=== PATIENT | female | born 1925 | race Caucasian/White ===

== ENCOUNTER 2017-05-21 16:41 | Inpatient (IN) | payer MEDICARE ==
[~2017-05-21] VITALS: Ht 165.1 cm; Wt 83.3 kg
[2017-05-21 17:20] LABS: BASOPHILS % (AUTO) 0.3 % (0.0-5.0); EOSINOPHILS % (AUTO) 0.5 % (0.0-8.0); HEMATOCRIT 35.1 % (36-48); LYMPHOCYTES % (AUTO) 5.5 % (21.0-51.0); MEAN CORPUSCULAR HEMOGLOBIN 30.3 pg (27.0-33.0); MEAN CORPUSCULAR HGB CONC 34.9 g/dL (32.0-36.0); MONOCYTES % (AUTO) 9.8 % (3.0-13.0); NEUTROPHILS % (AUTO) 83.9 % (40.0-77.0); PLATELET COUNT (AUTO) 308 K/uL (130-400); RED BLOOD CELL COUNT(AUTO) 4.03 MIL/uL (4.00-5.50); RED CELL DISTRIBUTION WIDTH 15.4 % (11.0-15.5); WHITE BLOOD COUNT (AUTO) 13.4 K/uL (4.8-10.8)
[2017-05-21 17:39] LABS: ALBUMIN 3.4 g/dL (3.5-5.0); BILIRUBIN,TOTAL 0.9 mg/dL (0.2-1.0); CREATININE 2.1 mg/dL (0.5-1.5); TOTAL PROTEIN, SERUM 7.5 g/dL (6.0-8.3)
[2017-05-21 17:41] LABS: POTASSIUM 2.6 mmol/L (3.5-5.1)
[2017-05-21] MEDS ORDERED: CEFTRIAXONE SODIUM 1 GM ONE (17:46)
[2017-05-21] MEDS ORDERED: SODIUM CHLORIDE 0.9% 1000ML 1,000 ML IV ONE (17:48)
[2017-05-21] MEDS ORDERED: POTASSIUM BICARB/CIT AC 25 MEQ TABLET.EFF ONE (17:49)
[2017-05-21] MEDS ORDERED: ZOSYN 3.375GM+NS 50ML 50 ML IV ONE (20:54)
[2017-05-21] MEDS ORDERED: ACETAMINOPHEN 325 MG TAB PO PRN ×2 (21:00)
[2017-05-21] MEDS ORDERED: DEXTROSE 50%-WATER 50 ML DISP.SYRIN IV PRN (21:00)
[2017-05-21] MEDS ORDERED: NITROGLYCERIN 0.4 MG SL TAB SL PRN (21:00)
[2017-05-21] MEDS ORDERED: VANCOMYCIN 1GM+NS 250ML 250 ML IV SCH (21:00)
[2017-05-21] MEDS ORDERED: DiphenhydrAMINE HCL 50 MG/ML VIAL IVP PRN (21:00)
[2017-05-21] MEDS ORDERED: MAG HYDROX/AL HYDROX/SIMETH ES 30 ML SUSP UDCUP PO PRN (21:00)
[2017-05-21] MEDS ORDERED: DIPHENHYDRAMINE HCL 25 MG CAPSULE PO PRN (21:00)
[2017-05-21] MEDS ORDERED: ONDANSETRON HCL 4 MG/2 ML VIAL IVP PRN (21:00)
[2017-05-21] MEDS ORDERED: ZOSYN 3.375GM+NS 50ML 50 ML IV SCH (21:00)
[2017-05-21] MEDS ORDERED: ZOLPIDEM TARTRATE 5 MG TAB PO PRN (21:00)
[2017-05-21] MEDS ORDERED: GUAIFENESIN-DM 200/20 MG 10 ML PO PRN (21:00)
[2017-05-21] MEDS ORDERED: GLUCAGON 1MG KIT 1 MG ML IM PRN (21:00)
[2017-05-21] MEDS: SODIUM CHLORIDE 0.9% 1000ML 1,000 ML IV SCH (21:00)
[2017-05-21] MEDS ORDERED: LACTULOSE 20 GM/30 ML UDCUP PO PRN (21:00)
[2017-05-21] MEDS ORDERED: CLONIDINE HCL 0.1 MG TABLET PO PRN (21:00)
[2017-05-21] MEDS ORDERED: VANCOMYCIN PROTOCOL PER PHARMACY IV SCH (21:00)
[2017-05-21] MEDS ORDERED: IPRATROPIUM/ALBUTEROL SULFATE 3 ML SOLUTION IH PRN (21:00)
[2017-05-21] MEDS: INSULIN R PO SSI SQ SCH (21:00)
[2017-05-21] MEDS ORDERED: VANCOMYCIN 1GM+NS 250ML 250 ML IV ONE (21:55)
[2017-05-21] MEDS ORDERED: ACETAMINOPHEN-CODEINE 300/30MG TAB ONE (23:04)
[2017-05-22] MEDS ORDERED: SODIUM CHLORIDE 0.9% 1000ML 1,000 ML IV ONE (00:29)
[2017-05-22] MEDS ORDERED: ZOSYN 3.375GM+NS 50ML 50 ML IV ONE (04:30)
[2017-05-22 07:00] LABS: BASOPHILS % (AUTO) 0.4 % (0.0-5.0); EOSINOPHILS % (AUTO) 1.7 % (0.0-8.0); HEMATOCRIT 31.4 % (36-48); LYMPHOCYTES % (AUTO) 8.5 % (21.0-51.0); MEAN CORPUSCULAR HEMOGLOBIN 30.9 pg (27.0-33.0); MEAN CORPUSCULAR HGB CONC 35.2 g/dL (32.0-36.0); MEAN CORPUSCULAR VOLUME 87.6 fL (79-99); NEUTROPHILS % (AUTO) 76.4 % (40.0-77.0); PLATELET COUNT (AUTO) 253 K/uL (130-400); RED BLOOD CELL COUNT(AUTO) 3.59 MIL/uL (4.00-5.50); RED CELL DISTRIBUTION WIDTH 15.2 % (11.0-15.5); WHITE BLOOD COUNT (AUTO) 8.8 K/uL (4.8-10.8)
[2017-05-22 07:03] LABS: CREATININE 1.8 mg/dL (0.5-1.5)
[2017-05-22 07:09] LABS: POTASSIUM 1.8 mmol/L (3.5-5.1)
[2017-05-22] MEDS: INSULIN R PO SSI SQ SCH ×4 (07:30→21:00)
[2017-05-22] MEDS ORDERED: POTASSIUM CHLORIDE 20 MEQ ERTAB PO ONE (07:39)
[2017-05-22] MEDS ORDERED: POTASSIUM CHLORIDE 20MEQ/100ML 100 ML IV ONE (07:43)
[2017-05-22] MEDS ORDERED: LIDOCAINE HCL-MPF 1% 2ML VIAL ONE (07:47)
[2017-05-22] MEDS ORDERED: MAGNESIUM 2GM PREMIX 50ML 50 ML IV ONE (10:05)
[2017-05-22 11:20] VITALS: BP 90/68
[2017-05-22] MEDS ORDERED: ACETAMINOPHEN-CODEINE 300/30MG TAB PO PRN (11:30)
[2017-05-22] MEDS ORDERED: COMPOUND IV REFRIGERATED 1 EACH IVSOLN MISC PRN (12:30)
[2017-05-22] MEDS: PIPERACILLIN SODIUM/TAZOBACTAM 3.375 GM VIAL IV SCH ×3 (15:13→23:18)
[2017-05-22 16:00] VITALS: BP 114/59
[2017-05-22] MEDS: VANCOMYCIN 1.25 GM in SODIUM CHLORIDE 0.9% 250 ML IV SCH (17:31)
[2017-05-22] MEDS: POTASSIUM CHLORIDE 10% ELIXIR 20 MEQ/15 ML UDCUP PO PRN ×3 (18:42→23:18)
[2017-05-22] MEDS ORDERED: DOCU-116 PO (20:08)
[2017-05-22] MEDS ORDERED: LEVO25TA54 PO (20:08)
[2017-05-22] MEDS ORDERED: LACT10SO PO (20:08)
[2017-05-22] MEDS ORDERED: GABA-531 PO (20:08)
[2017-05-22] MEDS ORDERED: IPRA3AMP4 IH (20:08)
[2017-05-22] MEDS ORDERED: LORA0.5T2 PO (20:08)
[2017-05-22] MEDS ORDERED: FENT-77 TD (20:08)
[2017-05-22] MEDS ORDERED: FURO40TA5 PO (20:08)
[2017-05-22] MEDS ORDERED: TYL3B PO (20:08)
[2017-05-22] MEDS ORDERED: HC1C1.5 TP (20:08)
[2017-05-22] MEDS ORDERED: ASPI-1197 PO (20:08)
[2017-05-22] MEDS ORDERED: PROM25TA7 PO (20:09)
[2017-05-22] MEDS ORDERED: METO5TAB7 PO (20:09)
[2017-05-22] MEDS ORDERED: SENN-175 PO (20:09)
[2017-05-22] MEDS ORDERED: MELA1TAB28 PO (20:09)
[2017-05-22] MEDS ORDERED: FOLI1TAB48 PO (20:09)
[2017-05-22 20:16] VITALS: BP 112/62
[2017-05-22] MEDS: SODIUM CHLORIDE 0.9% 1000ML 1,000 ML IV SCH (21:11)
[2017-05-23] VITALS (7 sets, daily range): BP systolic 99–110; BP diastolic 52–58
[2017-05-23] MEDS: SODIUM CHLORIDE 0.9% 1000ML 1,000 ML IV SCH ×3 (03:20→23:00)
[2017-05-23 05:30] LABS: MAGNESIUM 1.6 mg/dL (1.80-2.40)
[2017-05-23 05:32] LABS: POTASSIUM 2.1 mmol/L (3.5-5.1)
[2017-05-23] MEDS: INSULIN R PO SSI SQ SCH ×3 (06:04→20:46)
[2017-05-23] MEDS ORDERED: PROMETHAZINE HCL 25 MG TABLET PO PRN (06:30)
[2017-05-23] MEDS ORDERED: MAGNESIUM 2GM PREMIX 50ML 50 ML IV SCH (06:45)
[2017-05-23] MEDS ORDERED: HYDROCORTISONE 1% 28.35 GM CREAM TP PRN (06:45)
[2017-05-23] MEDS: PIPERACILLIN SODIUM/TAZOBACTAM 3.375 GM VIAL IV SCH ×3 (06:58→19:34)
[2017-05-23] MEDS: POTASSIUM CHLORIDE 10% ELIXIR 20 MEQ/15 ML UDCUP PO PRN ×2 (06:58→20:48)
[2017-05-23] MEDS ORDERED: LORAZEPAM 2 MG/ML 1 ML VIAL IVP PRN (07:00)
[2017-05-23] MEDS ORDERED: IPRATROPIUM/ALBUTEROL SULFATE 3 ML SOLUTION IH PRN (08:00)
[2017-05-23] MEDS: POTASSIUM CHLORIDE 20MEQ/100ML 100 ML IV PRN ×3 (08:15→20:48)
[2017-05-23] MEDS: POTASSIUM CHLORIDE 20 MEQ ERTAB PO PRN ×2 (08:15→13:42)
[2017-05-23] MEDS: LIDOCAINE HCL-MPF 1% 2ML VIAL IJ PRN ×3 (08:16→20:47)
[2017-05-23] MEDS ORDERED: **HM** MELATONIN 3MG PO PRN (09:00)
[2017-05-23] MEDS: METOLAZONE 2.5 MG TABLET PO SCH ×2 (09:42→20:52)
[2017-05-23] MEDS: FUROSEMIDE 40 MG TABLET PO SCH ×2 (09:42→20:52)
[2017-05-23] MEDS: LEVOTHYROXINE 25 MCG TABLET PO SCH (09:43)
[2017-05-23] MEDS: MULTIVITAMINS/MINERALS/IRO TAB PO SCH (09:43)
[2017-05-23] MEDS: DOCUSATE SODIUM 100 MG CAP PO SCH ×2 (09:46→20:51)
[2017-05-23] MEDS: LORAZEPAM 0.5 MG TABLET PO SCH ×2 (13:19→13:41)
[2017-05-23] MEDS: ASPIRIN 81MG TAB.CHEW PO SCH (20:49)
[2017-05-23] MEDS: GABAPENTIN 300 MG CAPSULE PO SCH (20:51)
[2017-05-24] MEDS: POTASSIUM CHLORIDE 20MEQ/100ML 100 ML IV PRN ×3 (01:09→14:44)
[2017-05-24] MEDS: PIPERACILLIN SODIUM/TAZOBACTAM 3.375 GM VIAL IV SCH ×2 (01:10→06:52)
[2017-05-24] MEDS: LIDOCAINE HCL-MPF 1% 2ML VIAL IJ PRN ×3 (01:10→14:44)
[2017-05-24 04:00] VITALS: BP 108/63
[2017-05-24 05:55] LABS: HEMATOCRIT 28.4 % (36-48); MEAN CORPUSCULAR HEMOGLOBIN 31.2 pg (27.0-33.0); MEAN CORPUSCULAR HGB CONC 35.3 g/dL (32.0-36.0); MEAN CORPUSCULAR VOLUME 88.5 fL (79-99); PLATELET COUNT (AUTO) 252 K/uL (130-400); RED BLOOD CELL COUNT(AUTO) 3.21 MIL/uL (4.00-5.50); RED CELL DISTRIBUTION WIDTH 15.4 % (11.0-15.5); WHITE BLOOD COUNT (AUTO) 10.8 K/uL (4.8-10.8)
[2017-05-24] MEDS: LORAZEPAM 0.5 MG TABLET PO SCH ×4 (06:00→17:06)
[2017-05-24 06:10] LABS: CREATININE 1.5 mg/dL (0.5-1.5)
[2017-05-24 06:12] LABS: POTASSIUM 2.6 mmol/L (3.5-5.1)
[2017-05-24] MEDS: INSULIN R PO SSI SQ SCH ×4 (06:37→21:00)
[2017-05-24] MEDS: LEVOTHYROXINE 25 MCG TABLET PO SCH (06:52)
[2017-05-24 08:00] VITALS: BP 106/66
[2017-05-24] MEDS ORDERED: FENTANYL 25 MCG/HR PATCH TD SCH (09:00)
[2017-05-24] MEDS: MULTIVITAMINS/MINERALS/IRO TAB PO SCH (09:30)
[2017-05-24] MEDS: METOLAZONE 2.5 MG TABLET PO SCH ×2 (09:30→21:00)
[2017-05-24] MEDS: DOCUSATE SODIUM 100 MG CAP PO SCH ×2 (09:30→22:16)
[2017-05-24] MEDS: FUROSEMIDE 40 MG TABLET PO SCH ×2 (09:32→21:00)
[2017-05-24] MEDS: SODIUM CHLORIDE 0.9% 1000ML 1,000 ML IV SCH ×2 (09:46→22:17)
[2017-05-24 11:44] VITALS: BP 118/70
[2017-05-24] MEDS: MEROPENEM 500 MG VIAL IVP SCH ×2 (12:59→22:15)
[2017-05-24] MEDS: VANCOMYCIN 1.25 GM in SODIUM CHLORIDE 0.9% 250 ML IV SCH (14:34)
[2017-05-24 16:00] VITALS: BP 97/54
[2017-05-24] MEDS: POTASSIUM CHLORIDE 20 MEQ ERTAB PO PRN ×2 (17:06→18:16)
[2017-05-24 20:00] VITALS: BP 113/50
[2017-05-24] MEDS: ASPIRIN 81MG TAB.CHEW PO SCH (22:16)
[2017-05-24] MEDS: GABAPENTIN 300 MG CAPSULE PO SCH (22:16)
[2017-05-24] MEDS: POTASSIUM CHLORIDE 10% ELIXIR 20 MEQ/15 ML UDCUP PO PRN (22:17)
[2017-05-24 23:39] VITALS: BP 114/57
[2017-05-25] MEDS: LORAZEPAM 0.5 MG TABLET PO SCH ×4 (00:40→19:58)
[2017-05-25 03:49] VITALS: BP 113/54
[2017-05-25 07:00] VITALS: BP 123/45
[2017-05-25] MEDS: LEVOTHYROXINE 25 MCG TABLET PO SCH (07:02)
[2017-05-25] MEDS: SODIUM CHLORIDE 0.9% 1000ML 1,000 ML IV SCH ×2 (07:02→15:00)
[2017-05-25] MEDS: INSULIN R PO SSI SQ SCH ×4 (07:02→21:00)
[2017-05-25] MEDS: POTASSIUM CHLORIDE 10% ELIXIR 20 MEQ/15 ML UDCUP PO PRN (07:03)
[2017-05-25] MEDS: POTASSIUM CHLORIDE 20MEQ/100ML 100 ML IV PRN (07:03)
[2017-05-25] MEDS: LIDOCAINE HCL-MPF 1% 2ML VIAL IJ PRN (07:03)
[2017-05-25] MEDS: MULTIVITAMINS/MINERALS/IRO TAB PO SCH (07:57)
[2017-05-25] MEDS: DOCUSATE SODIUM 100 MG CAP PO SCH ×2 (07:57→21:23)
[2017-05-25] MEDS: FUROSEMIDE 40 MG TABLET PO SCH ×2 (07:57→21:23)
[2017-05-25] MEDS: POTASSIUM CHLORIDE 20 MEQ ERTAB PO PRN ×3 (07:57→14:31)
[2017-05-25] MEDS: METOLAZONE 2.5 MG TABLET PO SCH ×2 (07:58→21:22)
[2017-05-25] MEDS: MEROPENEM 500 MG VIAL IVP SCH ×2 (09:33→21:24)
[2017-05-25 11:00] VITALS: BP 104/47
[2017-05-25 16:00] VITALS: BP 109/64
[2017-05-25 20:00] VITALS: BP 123/50
[2017-05-25] MEDS: ASPIRIN 81MG TAB.CHEW PO SCH (21:23)
[2017-05-25] MEDS: GABAPENTIN 300 MG CAPSULE PO SCH (21:23)
[2017-05-25 23:52] VITALS: BP 120/54
[2017-05-26 04:00] VITALS: BP 102/67
[2017-05-26] MEDS: LORAZEPAM 0.5 MG TABLET PO SCH ×2 (06:00)
[2017-05-26] MEDS: INSULIN R PO SSI SQ SCH (06:40)
[2017-05-26 07:00] VITALS: BP 113/68
[2017-05-26] MEDS: LEVOTHYROXINE 25 MCG TABLET PO SCH (07:00)
[2017-05-26] MEDS ORDERED: CEPH500B PO (07:17)
[2017-05-26] MEDS: DOCUSATE SODIUM 100 MG CAP PO SCH (09:01)
[2017-05-26] MEDS: MULTIVITAMINS/MINERALS/IRO TAB PO SCH (09:01)
[2017-05-26] MEDS: FUROSEMIDE 40 MG TABLET PO SCH (09:02)
[2017-05-26] MEDS: METOLAZONE 2.5 MG TABLET PO SCH (09:02)
== END 2017-05-26 10:05 | disposition home or self-care (01) | DRG 872 ==
LOC: EDH 16:41 → EDHIP 20:30 → 3DH 05-22 10:56
PROVIDERS: ADMIT Internal Medicine; ATTEND Internal Medicine
DX: A41.9 Sepsis, unspecified organism (principal); N17.9 Acute kidney failure, unspecified; L03.116 Cellulitis of left lower limb; F03.90 Unspecified dementia, unspecified severity, without behavioral disturbance, psychotic disturbance, mood disturbance, and anxiety; J44.9 Chronic obstructive pulmonary disease, unspecified; I73.9 Peripheral vascular disease, unspecified; I10 Essential (primary) hypertension; K21.9 Gastro-esophageal reflux disease without esophagitis; Z87.891 Personal history of nicotine dependence; Z28.21 Immunization not carried out because of patient refusal
CPT/HCPCS: 36415; 71045; 80048; 80053; 82948; 83605; 83735; 83880; 84132; 85025; 85027; 87040; 93970; 94640; 94664; A4218; J0696; J1200; J2185; J2543; J3370; J3475; J3480; J3490; J7030